=== PATIENT | male | born 1995 | race Caucasian/White ===

== ENCOUNTER 2018-07-12 17:31 | Emergency (ER) | payer BC ==
--- NOTE | 2018-07-12 19:00 | ED ---
HPI Cardiac - HPI Summary HPI Summary: Patient is a 23 y/o M presenting to ED with complaints of fluttering palpitations, left arm weakness, and chest pain. He reports Sx onset three days ago while he was trying to sleep. Episodes of Sx have persisted over the past three days, patient states that he is concerned about a blood clot. Patient denies swelling legs, recent travel or hospital procedures. He notes some slight SOB. No abdominal pain, N/V, cough is reported. At present, he states that Sx appear to be resolving. On triage, pain is denied. Nothing is noted to aggravate/alleviate Sx. Home medications and allergies are reviewed. - History of Current Complaint Chief Complaint: EDDysrhythmPalp Stated Complaint: HEART FLUCTUATIONS/WEAKNESS IN LEFT ARM PER PT Time Seen by Provider: 07/12/18 18:22 Hx Obtained From: Patient Onset/Duration: Started Days Ago - three Timing: Intermittent Current Severity: None - pain denied Pain Intensity: 0 Pain Scale Used: 0-10 Numeric - 0/10 Character: Fluttering Aggravating Factor(s): Nothing Alleviating Factor(s): Nothing Associated Signs and Symptoms: Positive: Chest Pain, Weakness - left arm, Shortness of Breath, Palpitations. Negative: Swelling, Nausea, Cough, Productive Cough, Nonproductive Cough, Abdominal Pain, Calf Pain/Swelling, Vomiting, Edema - Allergy/Home Medications Allergies/Adverse Reactions: Allergies Allergy/AdvReac Type Severity Reaction Status Date / Time amoxicillin Allergy Rash Verified 07/12/18 17:39 PMH/Surg Hx/FS Hx/Imm Hx Sensory History: Denies: Hx Legally Blind, Hx Deafness Opthamlomology History: Denies: Hx Legally Blind EENT History: Denies: Hx Deafness Infectious Disease History: No Infectious Disease History: Denies: Traveled Outside the [place] in Last 30 Days - Family History Known Family History: Negative: Blood Disorder - Social History Substance Use Type: Reports: None Smoking Status (MU): Never Smoked Tobacco Review of Systems Positive: Palpitations, Chest Pain Positive: Shortness Of Breath. Negative: Cough Negative: Abdominal Pain, Vomiting, Nausea Negative: Edema - BLE Positive: Weakness - left arm All Other Systems Reviewed And Are Negative: Yes Physical Exam - Summary Physical Exam Summary: Constitutional: Well-developed, Well-nourished, Alert. (-) Distressed Skin: Warm, Dry HENT: Normocephalic; Atraumatic Eyes: Conjunctiva normal Neck: Musculoskeletal ROM normal neck. (-) JVD, (-) Stridor, (-) Tracheal deviation Cardio: Rhythm regular, rate normal, Heart sounds normal; Intact distal pulses; The pedal pulses are 2+ and symmetric. Radial pulses are 2+ and symmetric. (-) Murmur Pulmonary/Chest wall: Effort normal. (-) Respiratory distress, (-) Wheezes, (-) Rales Abd: Soft, (-) tenderness, (-) Distension, (-) Guarding, (-) Rebound Musculoskeletal: (-) Edema Lymph: (-) Cervical adenopathy Neuro: Alert, Oriented x3 Psych: Mood and affect Normal Triage Information Reviewed: Yes Vital Signs On Initial Exam: Initial Vitals Temp Pulse Resp BP Pulse Ox 98.8 F 86 18 157/91 100 07/12/18 17:36 07/12/18 17:36 07/12/18 17:36 07/12/18 17:36 07/12/18 17:36 Vital Signs Reviewed: Yes Diagnostics - Vital Signs Vital Signs Temp Pulse Resp BP Pulse Ox 07/12/18 17:36 98.8 F 86 18 157/91 100 - Laboratory Result Diagrams: 07/12/18 19:42 07/12/18 19:42 Lab Statement: Any lab studies that have been ordered have been reviewed, and results considered in the medical decision making process. - Radiology chest x-ray Radiology Interpretation Completed By: ED Physician Summary of Radiographic Findings: No acute disease, pending official report. - EKG 1748 Cardiac Rate: NL - rate of 90 BPM EKG Rhythm: Sinus Rhythm Summary of EKG Findings: EKG showed ST elevation v2-v5 which is normal early repolarization, normal axis, normal UT, normal QRS, normal QTc, normal T-wave, normal EKG. Disposition - Course Course Of Treatment: Patient is a 23 y/o M presenting to ED with complaints of fluttering palpitations, left arm weakness, and chest pain. He reports Sx onset three days ago while he was trying to sleep. Episodes of Sx have persisted over the past three days, patient states that he is concerned about a blood clot. Patient denies swelling legs, recent travel or hospital procedures. He notes some slight SOB. No abdominal pain, N/V, cough is reported. At present, he states that Sx appear to be resolving. Physical exam is unremarkable. CXR is NAD. EKG showed ST elevation v2-v5 which is normal early repolarization, normal axis, normal UT, normal QRS, normal QTc, normal T-wave, normal EKG. WBC 10.3, D-dimer < 200, glucose 101, lactic acid 1.1, trop 0. Patient will be discharged to home and follow up with PCP. Patient is agreeable with this. - Diagnoses Provider Diagnoses: Palpitations Discharge - Sign-Out/Discharge Documenting (check all that apply): Patient Departure - discharge Patient Received Moderate/Deep Sedation with Procedure: No - Discharge Plan Condition: Good Disposition: HOME Patient Education Materials: Heart Palpitations (ED) Print Language: TUNISIAN Referrals: Kimberly Potts MD [Primary Care Provider] - Additional Instructions: Return to ED for any new or worsening symptoms. Follow up with primary care physician within 2 days. - Billing Disposition and Condition Condition: GOOD Disposition: Home - Attestation Statements Document Initiated by Fede: Yes Documenting Scribe: JEB ALSTON Provider For Whom Fede is Documenting (Include Credential): JENNIFER ELI MD Scribe Attestation: I, JEB ALSTON, scribed for JENNIFER BOTELLO MD on 07/12/18 at 2156. Scribe Documentation Reviewed: Yes Provider Attestation: The documentation as recorded by the JEB serrano accurately reflects the service I personally performed and the decisions made by me, JENNIFER BOTELLO MD Status of Scribe Document: Viewed
[2018-07-12 19:52] LABS: ABS Basophils 0 10^3/ul (0-0.2); ABS Eosinophils 0.1 10^3/ul (0-0.6); ABS Lymphocytes 1.8 10^3/ul (1.0-4.8); ABS Monocytes 0.8 10^3/ul (0-0.8); ABS Neutrophils 7.6 10^3/ul (1.5-7.7); ABS Nucleated RBC 0 10^3/ul; Hematocrit 45 % (42-52); Hemoglobin 15.5 g/dl (14.0-18.0); Lymphocyte % 17.4 %; Mean Corpuscular HGB Conc 35 g/dl (31-36); Mean Corpuscular Hemoglobin 29 pg (27-31); Mean Corpuscular Volume 85 fL (80-94); Mean Platelet Volume 8.5 fL (7.4-10.4); Nucleated Red Blood Cells % 0.1; Platelet Count 297 10^3/ul (150-450); Red Cell Distribution Width 13 % (10.5-15); White Blood Count 10.3 10^3/ul (3.5-10.8)
[2018-07-12 20:16] LABS: Albumin 5.1 g/dL (3.2-5.2); Albumin/Globulin Ratio 2.4 (1-3); BUN/Creatinine Ratio 11.7 (8-20); Calcium 9.8 mg/dL (8.6-10.3); EGFR African American 119.3 (>60); EGFR Non-African American 98.6 (>60); Globulin 2.1 g/dL (2-4); Potassium 3.8 mmol/L (3.5-5.0); Total Bilirubin 0.9 mg/dL (0.2-1.0); Total Protein 7.2 g/dL (6.4-8.9)
[2018-07-12 21:57] VITALS: BP 129/67
== END 2018-07-12 21:55 | disposition home or self-care (01) ==
LOC: ED 17:31
DX: R00.2 Palpitations (principal); Z88.0 Allergy status to penicillin
CPT/HCPCS: 36415; 71045; 80053; 83605; 84484; 85025; 85379; 93005; 99282

== ENCOUNTER 2018-11-26 15:39 | Emergency (ER) | payer BC ==
[2018-11-26 17:04] VITALS: BP 137/85
--- NOTE | 2018-11-26 17:11 | ED ---
Back Pain - HPI Summary HPI Summary: This patient is a 23-year-old male who presents to the ED with right-sided chest wall pain. He states he was hit in the chest wall with someone's elbow while playing soccer on Thursday, 5 days ago. He states since that time, he denies any shortness of breath, but endorses right-sided chest pain. He is endorsing pain directly over the area of concern. No bruising or signs of trauma are noted. Denies radiation of pain. Symptoms are better with rest and worse with strenuous exercise and activity. Patient remains afebrile, vital signs are stable on arrival. - History of Current Complaint Chief Complaint: EDChestWallPain Stated Complaint: RIB INJ FROM SOCCER PER PT Time Seen by Provider: 11/26/18 15:45 Hx Obtained From: Patient Onset/Duration: Started Hours Ago Timing: Constant Back Pain Location: Is Discrete @ - right chest wall Pain Intensity: 0 Pain Scale Used: 0-10 Numeric Character: Aching Aggravating Symptom(s): Movement Alleviating Symptom(s): Rest, Position Associated Signs And Symptoms: Negative: Swelling, Bruising - Allergies/Home Medications Allergies/Adverse Reactions: Allergies Allergy/AdvReac Type Severity Reaction Status Date / Time amoxicillin Allergy Rash Verified 07/12/18 17:39 Home Medications: Home Medications NK [No Home Medications Reported] 11/26/18 [History Confirmed 11/26/18] PMH/Surg Hx/FS Hx/Imm Hx Previously Healthy: Yes Sensory History: Denies: Hx Legally Blind, Hx Deafness Opthamlomology History: Denies: Hx Legally Blind - Immunization History Hx Pertussis Vaccination: No Immunizations Up to Date: Yes Infectious Disease History: No Infectious Disease History: Denies: Traveled Outside the [place] in Last 30 Days - Family History Known Family History: Negative: Blood Disorder - Social History Occupation: Employed Part-time Lives: Dormitory/Roommates Alcohol Use: None Substance Use Type: Reports: None Smoking Status (MU): Never Smoked Tobacco Review of Systems Negative: Fever, Chills, Fatigue, Skin Diaphoresis Negative: Palpitations, Chest Pain Negative: Shortness Of Breath, Cough Genitourinary: Negative Positive: no symptoms reported, see HPI Positive: Myalgia - chest wall pain. Negative: Arthralgia Skin: Negative Neurological: Negative All Other Systems Reviewed And Are Negative: Yes Physical Exam Triage Information Reviewed: Yes Vital Signs On Initial Exam: Initial Vitals Temp Pulse Resp BP Pulse Ox 99.1 F 79 18 147/90 99 11/26/18 15:42 11/26/18 15:42 11/26/18 15:42 11/26/18 15:42 11/26/18 15:42 Vital Signs Reviewed: Yes Appearance: Positive: Well-Appearing, Well-Nourished Skin: Positive: Warm, Skin Color Reflects Adequate Perfusion Head/Face: Positive: Normal Head/Face Inspection Eyes: Positive: EOMI, Conjunctiva Clear Neck: Positive: Supple, No Lymphadenopathy Respiratory/Lung Sounds: Positive: Clear to Auscultation, Breath Sounds Present Cardiovascular: Positive: RRR, Pulses are Symmetrical in both Upper and Lower Extremities Musculoskeletal: Positive: Strength/ROM Intact, Pain @ - chest wall pain Neurological: Positive: Speech Normal Psychiatric: Positive: Affect/Mood Appropriate AVPU Assessment: Alert Diagnostics - Vital Signs Vital Signs Temp Pulse Resp BP Pulse Ox 11/26/18 17:01 68 F 68 16 137/85 99 11/26/18 15:42 99.1 F 79 18 147/90 99 - Laboratory Lab Statement: Any lab studies that have been ordered have been reviewed, and results considered in the medical decision making process. Back Pain Course/Dx - Course Course Of Treatment: During this course treatment, the patient is evaluated for right-sided chest wall pain,/contusion. He was hit in the chest wall with an elbow approximately 5 days ago. The area continues to be slightly painful, however has been improving. He has not used anything [id number] for relief. Chest x-ray obtained with a rib series which showed no changes. On palpation, patient is endorsing slight tenderness to the area. No pain to the clavicles, full range of motion to the bilateral shoulders, elbows and wrists. She denies any range of motion issues. No shortness of breath. Lungs CTA, RRR. Patient will be diagnosed with chest wall contusion. - Diagnoses Provider Diagnoses: Chest wall contusion Discharge - Sign-Out/Discharge Documenting (check all that apply): Patient Departure Patient Received Moderate/Deep Sedation with Procedure: No - Discharge Plan Condition: Stable Disposition: HOME Patient Education Materials: Contusion in Adults (ED) Referrals: Kimberly Potts MD [Primary Care Provider] - Additional Instructions: Please follow up as needed You may resume returning to sports Ibuprofen 600mg three times daily and heat to the area - Billing Disposition and Condition Condition: STABLE Disposition: Home
== END 2018-11-26 17:01 | disposition home or self-care (01) ==
LOC: ED 15:39
DX: S20.211A Contusion of right front wall of thorax, initial encounter (principal); W50.0XXA Accidental hit or strike by another person, initial encounter; Y93.66 Activity, soccer; Y92.322 Soccer field as the place of occurrence of the external cause; Z88.0 Allergy status to penicillin
CPT/HCPCS: 99282